=== PATIENT | female | born 1955 | race Caucasian/White ===

== ENCOUNTER 2019-05-15 18:22 | Inpatient (IN) | payer OTHER ==
[~2019-05-15] VITALS: Ht 162.6 cm; Wt 75.3 kg
[2019-05-15 18:27] VITALS: Ht 162.6 cm; Wt 75.3 kg
--- NOTE | 2019-05-15 18:29 | NUR ---
EKG IN PROGRESS
--- NOTE | 2019-05-15 19:08 | NUR ---
PT CAME TO ED CO CHEST PRESSURE TO THE LEFT CHEST, THAT RADIATES TO THE LEFT ARM. PT STS THE PAIN HAS BEEN PRESENT FOR 2 WEEKS. PT STS SHE HAS FELT OVERLY FATIGUED THE LAST 2 WEEKS. PT STS THE PAIN COMES AND GOES. NO S/S OF DISTRESS. RESP E/U. VSS. PT TALKING IN COMPLETE SENTENCES. AWAITING MSE. COMFORT MEASURES IMPLEMENTED. WILL CONTINUE TO MONITOR.
--- NOTE | 2019-05-15 19:22 | NUR ---
DR. WERNER AT BEDSIDE FOR MSE.
--- NOTE | 2019-05-15 19:32 | NUR ---
PT MEDICATED PER ORDER. PT VERBALIZED UNDETSAND. SEE EMAR FOR DETAILS.
[2019-05-15 19:33] LABS: BASOPHIL % 0.3 % (0-2); PLATELET COUNT 278 x10^3mcL (130-400)
[2019-05-15 19:40] LABS: microscopic required? NO
[2019-05-15 19:45] LABS: urine erythrocyte NEGATIVE (NEGATIVE)
[2019-05-15 19:56] LABS: CALCIUM 9.6 mg/dL (8.5-10.1); CARBON DIOXIDE 26.7 mmol/L (21-32); CHLORIDE SERUM 103 mmol/L (98-107); CREATININE SERUM 0.9 mg/dL (0.6-1.0); GFR1 > 60 mL/min; GLUCOSE SERUM 152 mg/dL (74-106); POTASSIUM SERUM 3.3 mmol/L (3.5-5.1); SODIUM SERUM 143 mmol/L (136-145)
[2019-05-15 20:04] LABS: ALBUMIN 3.7 g/dL (3.4-5.0); ALKALINE PHOSPHATASE 87 U/L (46-116); ALT/SGPT 33 U/L (14-59); AST/SGOT 15 U/L (15-37); BILIRUBIN TOTAL 0.2 mg/dL (0.20-1.00); CHOLESTEROL 161 mg/dL (<200); CHOLESTEROL/HDL RATIO 3.7; HDL CHOLESTEROL 43 mg/dL (40-60); LIPASE 167 IU/L (73-393); TRIGLYCERIDES 329 mg/dL (<150)
[2019-05-15 20:05] LABS: T3 TOTAL 0.88 ng/mL
--- NOTE | 2019-05-15 20:18 | NUR ---
PT LAYING ON GURNEY IN POSITION OF COMFORT. PT STS SHE IS FEELING VERY RELAXED. NO S/S OF DISTRESS. RESP E/U. AT BEDSIDE WILL CONTINUE TO MONITOR.
[2019-05-15 20:38] LABS: FREE T4 0.84 ng/dL (0.76-1.46); FREE THYROXINE INDEX 2.5 ug/dL (1.4-4.5); T4(THYROXINE) 7.4 ug/dL (4.7-13.3)
[2019-05-15] MEDS ORDERED: METFORMIN HYD1000 M2 PO (21:41)
--- NOTE | 2019-05-15 21:44 | NUR ---
PT LAYING ON GURNEY IN POSITION OF COMFORT. PT VERBALIZED UNDERSTANDING OF ADMITTING INFORMATION. NO S/S OF DISTRESS. RESP E/U. WILL CONTINUE TO MONITOR.
--- NOTE | 2019-05-15 22:00 | NUR ---
REPORT GIVEN TO BRAYDEN FELIPE TO ASSUME CARE OF PT.
[2019-05-15 22:01] LABS: MAGNESIUM 1.7 mg/dL (1.8-2.4)
--- NOTE | 2019-05-15 22:17 | NUR ---
PT WAS RECEIVED BY PRIMARY NURSE MATTEO FROM ED VIA [facility], PT SEEN LYING IN BED,CAME IN DUE TO LEFT ARM PAIN AND CHEST PAIN. AAOX4. DENIES HEADACHE/DIZZINESS. NO SOB NOTED, LUNG SOUNDS CTA. DENIES CHEST PAIN/PRESSURE. SR ON THE MONITOR. DENIES ABDOMINAL DISCOMFORT. BOWEL SOUNDS ACTIVE. VOIDS. STATED THAT SHE HAS DECREASED SENSATION ON LUE. SIDE RAILS UPX2. CALL LIGHT ON REACH. ENDORSED TO PRIMARY NURSE MATTEO FOR CONTINUITY OF CARE
[2019-05-15 22:20] VITALS: BP 143/65
--- NOTE | 2019-05-15 22:20 | NUR ---
PT TRANSFERRED TO TELE FLOOR ACCOMPANIED BY NURSE AND EMT. NO S/S OF DISTRESS. RESP E/U. NURSE AT BEDSIDE TO ASSUME CARE OF PT. IV SITE PATENT. PT SENT W/ FLUIDS RUNNING, RN MADE AWARE.
--- NOTE | 2019-05-16 04:37 | NUR ---
PT SLEPT WELL SINCE ADMISSION.DENIES CHESTPAIN.POTASSIUM 20 MG PO ADMINISTERED FOR k 3.3.ALL NEEDS MET.WILL CONTINUE TO MONITOR.
[2019-05-16 04:55] LABS: BASOPHIL % 0.6 % (0-2); PLATELET COUNT 219 x10^3mcL (130-400); RED CELL DISTRIBUTION WIDTH 13.6 % (11.5-14.5)
[2019-05-16 05:18] LABS: CALCIUM 8.5 mg/dL (8.5-10.1); CARBON DIOXIDE 27.9 mmol/L (21-32); CHLORIDE SERUM 107 mmol/L (98-107); CREATININE SERUM 0.9 mg/dL (0.6-1.0); GFR1 > 60 mL/min; GLUCOSE SERUM 169 mg/dL (74-106); MAGNESIUM 1.6 mg/dL (1.8-2.4); PHOSPHOROUS 3.9 mg/dL (2.5-4.9); POTASSIUM SERUM 3.3 mmol/L (3.5-5.1); SODIUM SERUM 141 mmol/L (136-145)
--- NOTE | 2019-05-16 05:45 | NUR ---
RANDOM BS CHECKED @ 187 MG/DL.DR. ABBOTTED IN THE ROOM AND MADE AWARE OF PT'S HGAIC 7.6 AND MAGNESIUM LEVEL 1.7.
[2019-05-16 05:52] VITALS: BP 110/55
--- NOTE | 2019-05-16 07:30 | NUR ---
RECEIVED PATIENT RESTING IN BED, NO ACUTE DISTRESS NOTED. PATIENT DENIES CHEST PAIN, STATES THE PAIN WOULD COME AND GO. PATIENT DENIES NUMBNESS & TINGLING TO LUE. TELE MONITOR IN PLACE. NS IV INFUSING TO RAC AT 70ML/HR, NO S/S OF INFILTRATION. CALL LIGHT WITHIN REACH, BED IN LOW POSITION, WILL CONTINUE TO MONITOR.
[2019-05-16 09:27] VITALS: BP 136/65
[2019-05-16] MEDS ORDERED: LISINOPRIL20 MG PO (09:30)
--- NOTE | 2019-05-16 10:15 | NUR ---
DR. XIONG AWARE PATIENT RECEIVED MAG OX 400MG PO ONCE & HAD MAG 4G IV ONCE ORDERED, BUT NOT GIVEN. PATIENT MAG WAS 1.6, DR XIONG WILL D/C MAG 4G IV AND CHANGE TO MAG 2G IV ONCE. WILL CARRY OUT ORDERS WHEN PLACED. DR. XIONG AWARE PATIENT K WAS 3.3. WILL CONTINUE TO MONIOR PATIENT.
--- NOTE | 2019-05-16 11:05 | NUR ---
ECHO BEING DONE AT BEDSIDE.
--- NOTE | 2019-05-16 12:22 | NUR ---
SEPTIC TANK CLEANER AT BEDSIDE.
[2019-05-16 13:35] VITALS: BP 110/65
[2019-05-16 17:24] VITALS: BP 123/69
--- NOTE | 2019-05-16 17:59 | NUR ---
PATIENT RESTING IN BED, NO ACUTE CHANGES NOTED THROUGH OUT SHIFT. PATIENT IS STABLE, DENIES CHEST PAIN, HEADACHE. NS IV INFUSING TO RAC AT 70ML/HR, NO S/S OF INFILTRATION. PATIENT AWARE OF STRESS TEST AT TOMORROW 05/17, PATIENT AWARE NO FOOD OR LIQUIDS AT MIDNIGHT. CALL LIGHT WITHIN REACH, BED IN LOW POSITION, WILL CONTINUE TO MONITOR.
--- NOTE | 2019-05-16 19:44 | NUR ---
RECEIVED PATIENT IN BED AWAKE, ALERT AND ORIENTED WITH NO SIGN OF ACUTE RESPIRATORY DISTRESS. BREATHING EASY AND NONLABOR SATTING AT 99% RA. TELE#19 NSR ON MONITOR, DENIES CHEST DISCOMFORT AT THIS TIME. IV TO RAC [place], FLUSHED WITH NS. WILL CONTINUE TO MONITOR. CALL LIGHT WITHIN REACH.
[2019-05-16 20:29] VITALS: BP 131/68
--- NOTE | 2019-05-17 00:48 | NUR ---
APPEAR TO BE SLEEPING WITH EYES CLOSED. NO SIGN OF PAIN AND DISCOMFORT NOTED. WILL CONTINUE TO MONITOR.
--- NOTE | 2019-05-17 05:06 | NUR ---
CHECKED AT INTERVALS FOR NEEDS AND SAFETY, DENIES PAIN AND DISCOMFORT THE ENTRE SHIFT. KEPT ON NPO FOR REST/STRESS TEST TODAY. ALL NEEDS ATTENDED.
[2019-05-17 05:29] VITALS: BP 113/61
[2019-05-17 06:21] LABS: BASOPHIL % 0.5 % (0-2); PLATELET COUNT 209 x10^3mcL (130-400); RED CELL DISTRIBUTION WIDTH 13.6 % (11.5-14.5)
[2019-05-17 06:51] LABS: CALCIUM 8.3 mg/dL (8.5-10.1); CARBON DIOXIDE 25.6 mmol/L (21-32); CHLORIDE SERUM 108 mmol/L (98-107); CREATININE SERUM 0.6 mg/dL (0.6-1.0); GFR1 > 60 mL/min; GLUCOSE SERUM 171 mg/dL (74-106); POTASSIUM SERUM 3.7 mmol/L (3.5-5.1); SODIUM SERUM 144 mmol/L (136-145)
--- NOTE | 2019-05-17 07:20 | NUR ---
RECEIVED PT. IN BED A/A/O X3. NO SOB, NO N/V NOTED. PT. DENIES ANY PAIN AT THIS TIME. NS RUNNING AT 70 CC/HR VIA IV SITE AT R AC. BED IN LOW POS., CALL LIGHT WITHIN REACH. SIDE RAILS UP X3.
[2019-05-17 09:32] VITALS: BP 141/74
--- NOTE | 2019-05-17 11:20 | NUR ---
NEW IV SITE RESTARTED AT L FA WITH GAUGE #22 DUE TO LEAKING OF OLD IV SITE.
--- NOTE | 2019-05-17 13:52 | NUR ---
Initial Nutrition Assessment: T/A JENNIFER HANNA IA HR Dx: CP PMHx: HTN, DM 2, Hypercholesterolemia PSHx: Cholecystectomy, Labs: BG 171H, CA 8.3L, TG 329H, A1C 7.6H Meds: Colace, D 50%, humulin, Lipitor, zofran Diet: CCHO PO Intake: (05/16) lunch, dinner 100% Ht: 162.56 cm (64") Wt: 75 kg (165#) BMI: 28.5 kg/m2 Bed scale: 79.2 kg IBW: 120# (55 kg) %IBW: 137 UBW: 186# Age: 63/F Food Allergies: NKFA Skin: intact Bert: 21 Edema: none GI: Last BM: 05/15 Per H&P, Pt is a 63 yo F with PMH of HTN, DM, HLD who came with a cc of chest pain. RDN Visit (05/17): Patient was alert and oriented and said that she has excellent appetite but is NPO currently. Per RN Alexis, pt. is NPO for a lexiscan scheduled for today. Patient said that since November she has lost about 30# unintentionally after a colonoscopy. Problem with: N/V/D/C: no Problems with: Chewing/Swallowing: none Current appetite: good Recent wt change: lost 30# x 6 months %wt change: 11 Vitamin/Supplement use: lutein, omega 3, calcium Special diet at home: Diabetic diet Physical activity: walking Nutrition education given: Diabetes diet education was provided using [facility] handout on 'Type 2 Diabetes Nutrition Therapy'. Concepts like high fiber diet, label reading, types of carbohydrates and portion control were discussed. Patient verbalized understanding and did not have any questions at this time. Food-drug interactions: Colace- high fiber w/0720-8497 ml fluids Education given: yes Estimated Nutritional Needs Based on current body weight 75 kg Energy: 0296-9950 kcal/d (25-30 kcal/kg) Protein: 75-90 g/d (1.0-1.2 g/kg) - preserve LBM Fluid: 0081-5340 ml/d (1 ml/kcal) or per doctor Nutrition Diagnosis 1. Impaired nutrient utilization related to endocrine dysfunction as evidenced by A1C: 7.6 Intervention 1. Recommend continuing CCHO diet. 2. Diabetic diet education provided. Monitor/Evaluate Goal: PO intake at least 75% of estimated needs Monitor: PO intake, Labs, GI function F/U in 7 days as low risk 05/24
--- NOTE | 2019-05-17 13:52 | NUR ---
1. Recommend continuing [facility] diet. 2. Diabetic diet education provided.
[2019-05-17 13:55] VITALS: BP 125/68
[2019-05-17] MEDS ORDERED: V10 PO (15:35)
[2019-05-17] MEDS ORDERED: LIPI10 PO (15:36)
--- NOTE | 2019-05-17 16:50 | NUR ---
D/C HOME INSTRUCTIONS GIVEN TO PT. WHO VERBALIZED UNDERSTANDING OF INSTRUCTIONS. IV H/L TO L FA REMOVED. TELE. MONITOR #10 REMOVED AND RETURNED TO TELE. MONITOR STATION.
--- NOTE | 2019-05-17 17:20 | NUR ---
PT. IS BEING DISCHARGED IN STABLE CONDITION VIA WHEELCHAIR. ALL BELONGINGS SENT HOME WITH PT. UPON DISCHARGE.
== END 2019-05-17 17:20 | disposition home or self-care (01) | DRG 206 ==
LOC: ED 18:22 → DU 21:13 → MU 05-17 17:06
PROVIDERS: Specialist; ADMIT Internal Medicine
DX: M94.0 Chondrocostal junction syndrome [Tietze] (principal); E11.65 Type 2 diabetes mellitus with hyperglycemia; I10 Essential (primary) hypertension; E87.6 Hypokalemia; E83.42 Hypomagnesemia; E78.5 Hyperlipidemia, unspecified; F17.210 Nicotine dependence, cigarettes, uncomplicated; Z68.28 Body mass index [BMI] 28.0-28.9, adult; Z79.84 Long term (current) use of oral hypoglycemic drugs
CPT/HCPCS: 82962; 83880; 84439; G0378; J3475; J7030; Q0092